=== PATIENT | female | born 1975 | race Hispanic/Latino ===

== ENCOUNTER 2018-01-03 20:24 | Emergency (ER) | payer BC ==
[2018-01-03 20:52] LABS: APPEARANCE,URINE Clear (CLEAR); BILIRUBIN,URINE Negative (NEGATIVE); COLOR,URINE Yellow (YELLOW); GLUCOSE, URINE (UA) Negative (NEGATIVE); KETONES,URINE Negative (NEGATIVE); LEUKOCYTE ESTERASE ,URINE Negative (NEGATIVE); NITRATE,URINE Negative (NEGATIVE); OCCULT BLOOD,URINE Small (NEGATIVE); PH,URINE 5.5 (5.0-8.0); PROTEIN,URINE Negative (NEGATIVE); UROBILINOGEN,URINE 0.2 mg/dL (0.2-1.0)
[2018-01-03 20:58] LABS: HCG,QUAL RESULT NEGATIVE (NEGATIVE)
[2018-01-03] MEDS ORDERED: LIDOCAINE HCL-MPF 1% 2ML VIAL ONE (21:22)
[2018-01-03] MEDS ORDERED: CEFTRIAXONE SODIUM 500 MG VIAL ONE (21:22)
[2018-01-03] MEDS ORDERED: AZITHROMYCIN 250 MG TABLET PO ONE (21:23)
[2018-01-03] MEDS ORDERED: IBUPROFEN 600 MG TABLET ONE (21:24)
[2018-01-03 21:31] LABS: WBC,URINE 0-1 /HPF (0-1)
[2018-01-03 21:32] LABS: BACTERIA,URINE Few /HPF (None Seen); CALCIUM OXALATE CRYSTALS,UR Rare /LPF (None Seen); MUCUS,URINE Moderate LPF (None Seen); SQUAMOUS EPITHELIAL CELL,UR Moderate /HPF (0-2)
== END 2018-01-03 22:33 | disposition home or self-care (01) ==
LOC: EDH 20:24
DX: N73.9 Female pelvic inflammatory disease, unspecified (principal)
CPT/HCPCS: 81001; 81025; 87486; 87797; 96372; 99284; J0696; J3490